=== PATIENT | female | born 1950 | race Caucasian/White ===

== ENCOUNTER → 2017-01-27 | Outpatient (REF) ==
[~2017-01-27] MED LIST: AMBIEN CR12.5 MG PO; ASPIR-LOW81 MG PO; ASPIRIN 81M81 MG/TA2 PO; B-121000 MCG PO; BENICAR HCT 12.1 TAB PO; BENICAR HCT PO; BENICAR/HCTZ PO; BENICAR40 MG PO; CALCIUM 6001 TA1 PO; CALCIUM 600600 M2 PO; CALTRATE-600 W600 MG PO; CENTRUM SILVER1 CTB PO; COLACE 100100 MG/CAP PO; EFFEXOR XR75 MG/CAP PO; GABAPENTIN300 M1 PO; LANTUS SOLOS100 U/ML SQ; LANTUS SQ; LANTUS100 U/ML SC; LANTUS100 U/ML SQ; LEVOTHROID0.125 MG PO; LEVOXYL0.075 MG PO; LEVOXYL0.125 MG PO; LIPITOR 10MG10 MG PO; MASON NATURAL1200 MG PO; NEURONTIN600 MG/TAB PO; NOVOLIN 70/30 PE3 ML SC; NOVOLOG 100U100 U/M1 SC; NOVOLOG 100U100 U/M1 SQ; NOVOLOG FLEX100 U/ML SQ; OMEGA-3 FISH1200 MG PO; PRILOSEC 20MG20 MG PO; VITAMIN B1225 MCG; VITAMIN D 1001000 IU PO; [UNRECOGNIZED DRUG - MIXTURE] PO
[2017-01-27 14:51] LABS: THYROID STIMULATING HORMONE 10.5 uIU/mL (0.465-4.680)
== END ==
LOC: ZLAB.WCH 14:02
PROVIDERS: Surgery
DX: Z01.89 Encounter for other specified special examinations (principal)

== ENCOUNTER → 2017-01-31 | Outpatient (CLI) | payer MEDICARE, OTHER ==
[~2017-01-31] VITALS: Ht 165.1 cm; Wt 69.6 kg
[2017-01-31 16:41] VITALS: BP 144/68; PULSE 66
== END ==
LOC: LIGHT 14:43
DX: Z98.84 Bariatric surgery status (principal)

== ENCOUNTER → 2017-05-25 | Outpatient (REF) | LOC: ZLAB.WCH 17:59 | DX: Z01.89 Encounter for other specified special examinations (principal) ==

== ENCOUNTER → 2017-10-28 | Outpatient (REF) | LOC: ZLAB.WCH 18:09 | DX: Z01.89 Encounter for other specified special examinations (principal) ==

== ENCOUNTER → 2018-03-13 | Outpatient (CLI) | payer MEDICARE, OTHER ==
[~2018-03-13] VITALS: Ht 165.1 cm; Wt 69.6 kg
[~2018-03-13] MED LIST changes: -CALTRATE-600 W600 MG PO; +CITRACAL + D CA1 TAB PO; +ONE DAILY1 TA1 PO; +RESTORIL 1515 MG/CAP PO; +THYROXINE PO; +TRANSDERM-0.5 MG/21 TD
[2018-03-13 15:21] VITALS: BP 130/60; PULSE 84
== END ==
LOC: LIGHT 14:21
DX: Z98.84 Bariatric surgery status (principal); Z68.25 Body mass index [BMI] 25.0-25.9, adult; Z71.3 Dietary counseling and surveillance
CPT/HCPCS: G0463

== ENCOUNTER → 2018-10-31 | Outpatient (REF) | LOC: ZLAB.WCH 15:07 | DX: Z01.89 Encounter for other specified special examinations (principal) ==

== ENCOUNTER → 2019-05-08 | Outpatient (REF) | LOC: COL.CARD 08:24 | DX: Z01.818 Encounter for other preprocedural examination (principal) ==

== ENCOUNTER → 2021-02-16 | Outpatient (CLI) | payer MEDICARE, OTHER | LOC: COL.RAD 11:41 | DX: R91.1 Solitary pulmonary nodule (principal); Z98.890 Other specified postprocedural states; K83.8 Other specified diseases of biliary tract; R93.89 Abnormal findings on diagnostic imaging of other specified body structures; Z90.5 Acquired absence of kidney; Z90.49 Acquired absence of other specified parts of digestive tract | CPT/HCPCS: Q9967 ==

== ENCOUNTER → 2021-08-17 | Outpatient (CLI) | payer MEDICARE, OTHER | LOC: COL.RAD 09:05 | DX: R91.1 Solitary pulmonary nodule (principal); Z90.5 Acquired absence of kidney | CPT/HCPCS: Q9967 ==

== ENCOUNTER → 2023-07-06 | Outpatient (CLI) | payer MEDICARE, OTHER | LOC: DIA.ED 06-16 06:26 | DX: E11.40 Type 2 diabetes mellitus with diabetic neuropathy, unspecified (principal); E78.5 Hyperlipidemia, unspecified; I10 Essential (primary) hypertension | CPT/HCPCS: G0270 ==

== ENCOUNTER → 2023-09-05 | Outpatient (CLI) | payer MEDICARE | LOC: COL.RAD 08:21 | DX: R91.1 Solitary pulmonary nodule (principal) | CPT/HCPCS: Q9967 ==

== ENCOUNTER 2024-06-15 07:09 | Day surgery (SDC) | payer MEDICARE, OTHER ==
[~2024-06-15] VITALS: Ht 165.1 cm; Wt 78.1 kg
[~2024-06-15 07:09] MED LIST changes: +LR 1,000 ML IV SCH; +Ondansetron 4 MG/2 ML VIAL IV PRN; -RESTORIL 1515 MG/CAP PO; +RESTORIL30 MG PO; +SYNTHROID0.075 MG/T PO; -THYROXINE PO; -VITAMIN D 1001000 IU PO; +VITAMIN D31000 I1 PO
[2024-06-15 07:31] VITALS: BP 133/79; PULSE 88; TEMP 97.9
[2024-06-15] MEDS ORDERED: OZEMPIC1 MG/0.71 SQ (07:40)
[2024-06-15] MEDS ORDERED: CLARITIN 1010 MG/TAB PO (07:40)
[2024-06-15] MEDS ORDERED: TRELEGY ELLIPT1 EAC1 IH (07:41)
[2024-06-15] MEDS ORDERED: FOSAMAX 70MG TA70 MG PO (07:42)
[2024-06-15] MEDS ORDERED: FLONASEALLERGY NS (07:42)
[2024-06-15] MEDS ORDERED: Lidocaine PF 2% (20 MG/ML) 5 ML VIAL ONE (09:00)
[2024-06-15 09:35] VITALS: BP 114/47; PULSE 78; TEMP 97.5
[2024-06-15 09:50] VITALS: BP 129/63; PULSE 72
[2024-06-15 10:05] VITALS: BP 107/58; PULSE 74
[2024-06-15 10:20] VITALS: BP 117/53; PULSE 72
--- NOTE | 2024-06-15 10:25 | NUR ---
0935 RETURNS TO ROOM 9 PER CART. AWAKE, ALERT. RESP UNLABORED. AMBULATES TO RECLINER WITH STANDBY ASSIST. DENIES NAUSEA, ABD/CHEST PAIN OR DYSPHAGIA. VITAL SIGNS OBTAINED. CALL LIGHT AT SIDE 0950 TOLERATES PO JUICE AND PUDDING WITHOUT NAUSEA. SWALLOWS WITHOUT DIFFICULTY 1005 DISCHARGE INSTRUCTIONS REVIEWED. PATIENT VERBALIZES UNDERSTANDING. COPY PROVIDED IN DISCHARGE FOLDER 1010 DR. MURDOCK HERE TO VISIT WITH PATIENT 1020 DRESSES SELF
== END 2024-06-15 10:25 | disposition home or self-care (01) ==
LOC: SDCO 07:09
DX: K58.1 Irritable bowel syndrome with constipation (principal); K25.7 Chronic gastric ulcer without hemorrhage or perforation; K21.9 Gastro-esophageal reflux disease without esophagitis; K57.30 Diverticulosis of large intestine without perforation or abscess without bleeding; I10 Essential (primary) hypertension; Z90.5 Acquired absence of kidney; Z98.84 Bariatric surgery status; Z85.528 Personal history of other malignant neoplasm of kidney
CPT/HCPCS: J2405; J2704; J7120

== ENCOUNTER → 2024-06-25 | Outpatient (CLI) | payer MEDICARE, OTHER ==
[~2024-06-25] MED LIST changes: +CLARITIN 1010 MG/TAB PO; +FLONASEALLERGY NS; +FOSAMAX 70MG TA70 MG PO; +Gadoterate 20 ML VIAL IV ONE; -LR 1,000 ML IV SCH; +OZEMPIC1 MG/0.71 SQ; -Ondansetron 4 MG/2 ML VIAL IV PRN; +TRELEGY ELLIPT1 EAC1 IH
== END ==
LOC: COL.RAD 06:46
DX: I67.82 Cerebral ischemia (principal)
CPT/HCPCS: A9575